=== PATIENT | female | born 1945 | race Caucasian/White ===

== ENCOUNTER 2016-10-29 07:03 | Day surgery (SDC) | payer MEDICARE, MEDICAID ==
[~2016-10-29] VITALS: Ht 162.6 cm; Wt 58.8 kg
[~2016-10-29 07:03] MED LIST: ADVAI500I PO; ALBU8I INH; ASPI-130 PO; NAPR220T95 PO; OMEP20TA PO; SIMV40TA PO; TAB-TAB PO
[2016-10-29 07:30] VITALS: BP 124/65; PULSE 85; RESP 18; TEMP 98.1; O2SAT 95
[2016-10-29] MEDS ORDERED: CLAR10CA3 PO (07:44)
[2016-10-29] MEDS ORDERED: GUAISYP5 PO (07:44)
[2016-10-29] MEDS ORDERED: ALBU0.08 NEB (07:44)
[2016-10-29] MEDS ORDERED: NAPR220T95 PO (07:44)
[2016-10-29] MEDS ORDERED: SODIUM CHLOR 0.9% 1000 ML INJ 1,000 ML IV SCH ×2 (07:45→11:06)
[2016-10-29] MEDS ORDERED: OMEP20TA PO (07:48)
[2016-10-29] MEDS ORDERED: MULTTAB67 PO (07:48)
[2016-10-29] MEDS ORDERED: HYDR-4107 PO (07:48)
[2016-10-29] MEDS ORDERED: CILO50TA PO (07:48)
[2016-10-29] MEDS ORDERED: ALPR0.25 PO (07:48)
[2016-10-29] MEDS ORDERED: ADVA100A INH (07:48)
[2016-10-29] MEDS ORDERED: VENTAER INH (07:48)
[2016-10-29] MEDS ORDERED: ASPI1TAB69 PO (07:48)
[2016-10-29] MEDS ORDERED: SIMV40TA PO (07:48)
[2016-10-29] MEDS ORDERED: DIPH1TAB36 PO (07:50)
[2016-10-29] MEDS ORDERED: MIDAZOLAM HCL 2 MG/2 ML VIAL ONE ×2 (08:35→09:25)
[2016-10-29] MEDS ORDERED: HEPARIN-NS/PF INJ 500 ML ONE ×3 (08:35→10:26)
[2016-10-29] MEDS ORDERED: HEPARIN SODIUM - IV 10,000 UNITS/10 ML VIAL ONE (08:48)
[2016-10-29] MEDS ORDERED: NITROGLYCERIN INJ 5 ML ONE (08:48)
[2016-10-29] MEDS ORDERED: IOHEXOL 350 MG/ML 100 ML BTL (for Cath Lab) OTHER ONE (11:00)
[2016-10-29] MEDS ORDERED: CLOPIDOGREL 300 MG TAB ONE (11:07)
[2016-10-29] MEDS ORDERED: PLAV75TA29 PO (11:10)
[2016-10-29] MEDS ORDERED: ONDANSETRON HCL 4 MG/2 ML VIAL IV PRN (11:15)
[2016-10-29] MEDS ORDERED: BACITRACIN OINT 0.9 GM PKT TOP ONE (11:15)
[2016-10-29] MEDS ORDERED: oxyCODONE/ACETAMINOPHEN 5 MG/325 MG TAB PO PRN (11:15)
[2016-10-29] MEDS ORDERED: SODIUM CHLOR 0.9% 250 ML INJ 250 ML IV PRN (11:15)
[2016-10-29] MEDS ORDERED: LIDOCAINE HCL 1% 50 ML VIAL INFIL PRN (11:15)
[2016-10-29] MEDS ORDERED: oxyCODONE/ACETAMINOPHEN 10 MG/325 MG TAB PO PRN (11:15)
[2016-10-29] MEDS ORDERED: MISC INFORMATION XX ONE (11:15)
[2016-10-29] MEDS ORDERED: MORPHINE SULFATE 4 MG/ML INJ IV PUSH PRN (11:15)
[2016-10-29] MEDS ORDERED: ATROPINE SULFATE 1 MG/ML VIAL IV PRN (11:15)
[2016-10-29] MEDS ORDERED: LORazepam 2 MG/ML VIAL IV PRN (11:15)
[2016-10-29] MEDS ORDERED: METOCLOPRAMIDE HCL 10 MG/2 ML VIAL IV PRN (11:15)
[2016-10-29] MEDS ORDERED: CLOPIDOGREL 300 MG TAB PO ONE (11:15)
[2016-10-29] MEDS ORDERED: TEMAZEPAM 15 MG CAP PO PRN (11:15)
[2016-10-29] MEDS ORDERED: ACETAMINOPHEN 325 MG TAB PO PRN (11:15)
--- NOTE | 2016-10-29 13:53 | MA ---
cc: TRENTON BIRCH MD DATE: 10/29/2016 PROCEDURE PERFORMED: 1. Fluoroscopy with interpretation. 2. Descending aortography. 3. Bilateral lower extremity peripheral angiography with first, second, and third order visualization and interpretation. 4. Percutaneous transluminal angioplasty and endovascular stenting of the chronically occluded right common iliac artery. METHOD: Risks, benefits, and alternatives were discussed with the patient. The patient understood and consented to the procedure. DESCRIPTION OF THE PROCEDURE IN DETAIL: The patient was brought into the catheterization lab and placed on the cardiac catheterization table. Right wrist and bilateral groins were prepped and draped in a sterile fashion. Right wrist was anesthetized with 2% lidocaine. Right radial artery was cannulated. A 6-Fijian 7-cm sheath was placed without difficulty. DESCENDING AORTOGRAPHY: Descending aortography was performed in anterior and posterior view for radial approach. The descending aorta has mild to moderate descending atherosclerosis and calcification. Bilateral renal arteries are widely patent. PERIPHERAL ANGIOGRAPHY: 1. Right common iliac artery was occluded. Right internal and external iliac arteries have mild luminal irregularities. 2. The right common femoral artery has mild to moderate plaque but nonobstructive. 3. The right profunda is widely patent. 4. Superficial femoral artery has a 75% tubular stenosis in the mid segment. 5. The popliteal has mild luminal irregularities. 6. There is three-vessel runoff with mild luminal irregularities to the anterior and posterior peroneal vessels. 7. Left common iliac artery has moderate calcium present 30% stenosis. Left internal and external iliac arteries have mild luminal irregularities. 8. The left common femoral has mild luminal irregularities. 9. The left profunda is slightly patent. 10. The left superficial femoral artery is flush occluded proximally. 11. The left popliteal artery canalizes via profunda collaterals and is widely patent. There is three-vessel runoff left lower extremity. 11. Anterior and posterior peroneal vessels are widely patent. PERCUTANEOUS INTERVENTION: A 6-Fijian multipurpose catheter was advanced from the radial approach towards the right common iliac artery occlusion. Attempts were made a 0.035 inch 260-cm stiff angled Glidewire which were unsuccessful. We used a 0.018 inch Meagher 12 wire and we were able to, with a great deal of time and effort, cross through the chronic occlusion into the right common femoral artery. Access was then obtained in the right common femoral artery. The Meagher 12 wire was then snared from the groin sheath and pulled through the sheath. A 0.035 inch standard trailblazer catheter was then advanced over the wire through the groin sheath into the descending aorta. Digital subtraction angiography confirmed intraluminal placement. A 0.035-inch Advantage wire was then advanced to the thoracic aorta. A 4.0 x 60 mm Medtronic balloon was deployed in the right common iliac artery. Repeat angiography showed MARIANA III flow but heavy calcification and still residual stenosis. A 7.0 x 40 mm Medtronic balloon expandable stent was then deployed and postdilated with a 6.0 x 20 mm reef balloon to 20 atmospheres. Repeat angiography showed no residual stenosis and MARIANA III flow. A radial HemoBand applied. The groin sheaths were sewn into place to be removed. Manual hemostasis. Heparin was administered throughout the entire procedure to maintain appropriate coagulation. CONCLUSIONS: 1. 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 2. 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 3. successful percutaneous angioplasty and endovascular stenting of the chronically occluded right common iliac artery. 4. Moderate descending aortic atherosclerosis. PLAN: 1. Will monitor the patient for any post procedural complications. Hopefully this will translate well to symptomatic improvement and wound healing on the right lower extremity. There is still residual right superficial femoral artery stenosis but hopefully with significant improvement in the inflow we will get appropriate wound healing regardless. The left chronically occluded superficial femoral artery is flush occluded proximally. The only approach would be retrograde from a popliteal approach. The bifurcation of the profunda is below the common femoral and potentially approachable without compromising the common femoral artery. We could also entertained a bilateral popliteal approach to also revascularize the right superficial femoral artery stenosis. Otherwise, a left sided femoropopliteal would be a reasonable alternative. Will discuss with the patient these options. Will continue aspirin and initiate Plavix. Anticipate discharge later today. MD ABDULLAHI Montemayor/EMILY /11:17 AM /1:39 PM BEULAH
[2016-10-29] MEDS ORDERED: RESP: ALBUTEROL 2.5 MG/3 ML NEB (PRN) ONE (14:30)
[2016-10-29] MEDS ORDERED: RESP: ALBUTEROL 2.5 MG/3 ML NEB (SCH) INH (15:00)
[2016-10-30] MEDS ORDERED: ASPIRIN 81 MG CHEW TAB PO SCH (09:00)
[2016-10-30] MEDS ORDERED: CLOPIDOGREL 75 MG TAB PO SCH (09:00)
== END 2016-10-29 19:01 | disposition home or self-care (01) ==
LOC: HDOC 07:03 → HDIC 07:04 → HDOC 19:01
PROVIDERS: ATTEND Internal Medicine
DX: I70.211 Atherosclerosis of native arteries of extremities with intermittent claudication, right leg (principal); I48.91 Unspecified atrial fibrillation; I10 Essential (primary) hypertension; I25.10 Atherosclerotic heart disease of native coronary artery without angina pectoris; E78.5 Hyperlipidemia, unspecified; Z79.01 Long term (current) use of anticoagulants; Z72.0 Tobacco use
CPT/HCPCS: 36200; 37221; 75625; 75716; 85002; 85347; 86850; 86900; 86901; C1725; C1751; C1769; C1876; C1887; C1893; J1644; J2060; J2250; J3010; J7030; J7613; Q9967